=== PATIENT | male | born 1995 | race American Indian/Alaskan Native ===

== ENCOUNTER 2017-10-20 08:41 | Emergency (ER) | payer MEDICAID ==
[2017-10-20 09:33] VITALS: BP 112/82
[2017-10-20] MEDS ORDERED: MOTRIN PO ONE (11:31)
--- NOTE | 2017-10-20 11:31 | Emergency Department Report ---
ED ENT HPI - General Chief complaint: Dental/Oral Stated complaint: TOOTH ABSCESS Time Seen by Provider: 10/20/17 11:26 Source: patient Mode of arrival: Ambulatory Limitations: No Limitations - History of Present Illness Initial comments: This is a 22-year-old male who was previously unknown to this provider presented to the ER with a complaint of acute on chronic dentalgia. Dentalgia has been present for 2 years, it got worse over the past week. He endorses sensitivity to cold and to liquid and today he's. Pain is severe tooth #27, 28. No stridor or dysphonia. No headache, neck pain, chest pain, abdominal pain or shortness of breath. He hasn't followed up with a dentist yet. MD complaint: tooth pain -: Gradual, year(s) Location: tooth # (27) Severity: moderate Quality: aching Consistency: intermittent Improves with: NSAID, other medication, rest Worsens with: eating, movement Context- Dental: history of dental caries Associated Symptoms: toothache. denies: fever, cough, pain with swallowing, sore throat, tinnitus, hearing loss, discharge from ear, rhinorrhea - Related Data Previous Rx's Medication Instructions Recorded Last Taken Type HYDROcodone/APAP 5-325 [[place] 1 each PO Q6HR PRN #12 tablet 01/18/15 Unknown Rx 5/325] Ibuprofen [Motrin 600 MG tab] 600 mg PO Q8H PRN #20 tablet 01/18/15 Unknown Rx Sulfamethoxazole/Trimethoprim 1 each PO Q12H #20 tablet 01/18/15 Unknown Rx [Bactrim DS TAB] Azithromycin [Zithromax] 250 mg PO DAILY #1 pkg 01/06/16 Unknown Rx Fluticasone [Flonase] 2 spray NS QDAY #1 bottle 01/06/16 Unknown Rx Loratadine [Claritin] 10 mg PO DAILY #30 tablet 01/06/16 Unknown Rx Prednisone [predniSONE 10 mg 10 mg PO .TAPER #1 tab.ds.pk 01/06/16 Unknown Rx (6-Day Pack, 21 Tabs)] Promethazine /Codeine 5 ml PO Q6H PRN #150 ml 01/06/16 Unknown Rx [Phenergan/Codeine 6.25-10 mg/5 ml] Acetaminophen [Tylenol Arthritis] 650 mg PO Q6HR PRN #30 tablet.er 10/20/17 Unknown Rx Chlorhexidine Mouthwash [Peridex] 15 ml MM BID #1 bottle 10/20/17 Unknown Rx Ibuprofen [Motrin] 600 mg PO Q8H PRN #30 tablet 10/20/17 Unknown Rx Penicillin V Potassium 500 mg PO BID #13 tablet 10/20/17 Unknown Rx oxyCODONE [Roxicodone] 5 mg PO Q6HR PRN #15 tablet 10/20/17 Unknown Rx Allergies Allergy/AdvReac Type Severity Reaction Status Date / Time No Known Allergies Allergy Verified 01/06/16 10:00 ED Dental HPI - General Chief complaint: Dental/Oral Stated complaint: TOOTH ABSCESS Time Seen by Provider: 10/20/17 11:26 Source: patient Mode of arrival: Ambulatory Limitations: No Limitations - Related Data Previous Rx's Medication Instructions Recorded Last Taken Type HYDROcodone/APAP 5-325 [[place] 1 each PO Q6HR PRN #12 tablet 01/18/15 Unknown Rx 5/325] Ibuprofen [Motrin 600 MG tab] 600 mg PO Q8H PRN #20 tablet 01/18/15 Unknown Rx Sulfamethoxazole/Trimethoprim 1 each PO Q12H #20 tablet 01/18/15 Unknown Rx [Bactrim DS TAB] Azithromycin [Zithromax] 250 mg PO DAILY #1 pkg 01/06/16 Unknown Rx Fluticasone [Flonase] 2 spray NS QDAY #1 bottle 01/06/16 Unknown Rx Loratadine [Claritin] 10 mg PO DAILY #30 tablet 01/06/16 Unknown Rx Prednisone [predniSONE 10 mg 10 mg PO .TAPER #1 tab.ds.pk 01/06/16 Unknown Rx (6-Day Pack, 21 Tabs)] Promethazine /Codeine 5 ml PO Q6H PRN #150 ml 01/06/16 Unknown Rx [Phenergan/Codeine 6.25-10 mg/5 ml] Acetaminophen [Tylenol Arthritis] 650 mg PO Q6HR PRN #30 tablet.er 10/20/17 Unknown Rx Chlorhexidine Mouthwash [Peridex] 15 ml MM BID #1 bottle 10/20/17 Unknown Rx Ibuprofen [Motrin] 600 mg PO Q8H PRN #30 tablet 10/20/17 Unknown Rx Penicillin V Potassium 500 mg PO BID #13 tablet 01/20/18 Unknown Rx oxyCODONE [Roxicodone] 5 mg PO Q6HR PRN #15 tablet 10/20/17 Unknown Rx Allergies Allergy/AdvReac Type Severity Reaction Status Date / Time No Known Allergies Allergy Verified 01/06/16 10:00 ED Review of Systems ROS: Stated complaint: TOOTH ABSCESS Other details as noted in HPI ED Past Medical Hx - Past Medical History Previous Medical History?: Yes Hx Asthma: Yes Additional medical history: reactive airway disease - Surgical History Past Surgical History?: Yes Additional Surgical History: wisdom tooth removed - Social History Smoking Status: Current Every Day Smoker Substance Use Type: Non Opiate Pain - Medications Home Medications: Home Medications Medication Instructions Recorded Confirmed Last Taken Type HYDROcodone/APAP 5-325 [[place] 1 each PO Q6HR PRN #12 tablet 01/18/15 Unknown Rx 5/325] Ibuprofen [Motrin 600 MG tab] 600 mg PO Q8H PRN #20 tablet 01/18/15 Unknown Rx Sulfamethoxazole/Trimethoprim 1 each PO Q12H #20 tablet 01/18/15 Unknown Rx [Bactrim DS TAB] Azithromycin [Zithromax] 250 mg PO DAILY #1 pkg 01/06/16 Unknown Rx Fluticasone [Flonase] 2 spray NS QDAY #1 bottle 01/06/16 Unknown Rx Loratadine [Claritin] 10 mg PO DAILY #30 tablet 01/06/16 Unknown Rx Prednisone [predniSONE 10 mg 10 mg PO .TAPER #1 tab.ds.pk 01/06/16 Unknown Rx (6-Day Pack, 21 Tabs)] Promethazine /Codeine 5 ml PO Q6H PRN #150 ml 01/06/16 Unknown Rx [Phenergan/Codeine 6.25-10 mg/5 ml] Acetaminophen [Tylenol Arthritis] 650 mg PO Q6HR PRN #30 tablet.er 10/20/17 Unknown Rx Chlorhexidine Mouthwash [Peridex] 15 ml MM BID #1 bottle 10/20/17 Unknown Rx Ibuprofen [Motrin] 600 mg PO Q8H PRN #30 tablet 10/20/17 Unknown Rx Penicillin V Potassium 500 mg PO BID #13 tablet 10/20/17 Unknown Rx oxyCODONE [Roxicodone] 5 mg PO Q6HR PRN #15 tablet 10/20/17 Unknown Rx ED Physical Exam - General Limitations: No Limitations General appearance: alert, in no apparent distress - Head Head exam: Present: atraumatic, normocephalic - Eye Eye exam: Present: normal appearance, PERRL, EOMI. Absent: nystagmus - ENT ENT exam: Present: normal exam (there is no stridor or dysphonia or trismus. There is no malocclusion.), normal orophraynx, mucous membranes moist, TM's normal bilaterally, normal external ear exam, other (no obvious abscess is noted. There is no buccal tenderness. There is no sublingual tenderness. Teeth #29 30, 31, 32 tender to percussion.) - Neck Neck exam: Present: normal inspection, full ROM - Respiratory Respiratory exam: Present: normal lung sounds bilaterally. Absent: respiratory distress - Cardiovascular Cardiovascular Exam: Present: regular rate, normal rhythm, normal heart sounds. Absent: systolic murmur, diastolic murmur, rubs, gallop - GI/Abdominal GI/Abdominal exam: Present: soft, normal bowel sounds. Absent: distended, tenderness, guarding, rebound, rigid - Rectal Rectal exam: Present: deferred - Extremities Exam Extremities exam: Present: normal inspection, full ROM. Absent: tenderness - Back Exam Back exam: Present: normal inspection, full ROM. Absent: tenderness, CVA tenderness (R), paraspinal tenderness, vertebral tenderness - Neurological Exam Neurological exam: Present: alert, oriented X3, CN II-XII intact, normal gait, other (Extraocular movements intact. Tongue midline. No facial droop. Facial sensation intact to light touch in the V1, V2, V3 distribution bilaterally. 5 and 5 strength in 4 extremities.. Sensation is intact to light touch in 4 extremities.). Absent: motor sensory deficit - Psychiatric Psychiatric exam: Present: normal affect, normal mood - Skin Skin exam: Present: warm, dry, intact, normal color. Absent: rash ED Course Vital Signs 10/20/17 10/20/17 09:29 11:46 Temperature 98.5 F Pulse Rate 79 Respiratory 18 20 Rate Blood Pressure 112/82 O2 Sat by Pulse 99 Oximetry ED Medical Decision Making - Lab Data Vital Signs 10/20/17 10/20/17 09:29 11:46 Temperature 98.5 F Pulse Rate 79 Respiratory 18 20 Rate Blood Pressure 112/82 O2 Sat by Pulse 99 Oximetry - Medical Decision Making Differential diagnosis, including not limited to: Dentalgia, dental caries Assessment and plan: 22-year-old male with dental caries and dentalgia. No evidence clinically of large abscess. He is protecting his airway at this time. He will be started on pain medication, chlorhexidine, penicillin, and he will be referred to local dentist. Addition, patient was given numerous printouts on local low-cost dentists available in state. Critical care attestation.: If time is entered above; I have spent that time in minutes in the direct care of this critically ill patient, excluding procedure time. ED Disposition Clinical Impression: Dentalgia Disposition: DC- TO HOME OR SELFCARE Is pt being admited?: No Does the pt Need Aspirin: No Condition: Good Instructions: Dental Caries (ED), Toothache (ED) Additional Instructions: Take the pain medication, antibiotics as directed. Follow up with a dentist as soon as possible. Follow-up with primary care doctor on an as-needed basis. Return to the ER right away with new pain, worsened pain, migration of pain, fevers, chills, confusion, projectile vomiting, change in mental status, inability to speak, inability to breathe. Prescriptions: Acetaminophen [Tylenol Arthritis] 650 mg PO Q6HR PRN #30 tablet.er PRN Reason: Pain Chlorhexidine Mouthwash [Peridex] 15 ml MM BID #1 bottle Ibuprofen [Motrin] 600 mg PO Q8H PRN #30 tablet PRN Reason: Pain oxyCODONE [Roxicodone] 5 mg PO Q6HR PRN #15 tablet PRN Reason: Pain Penicillin V Potassium 500 mg PO BID #13 tablet Referrals: PRIMARY MD STEVENSON [Primary Care Provider] - 3-5 Days GRISELDA ERWIN MD [Staff Physician] - 3-5 Days [facility] [Outside] - 3-5 Days
[2017-10-20] MEDS ORDERED: VEETIDS PO ONE (12:00)
== END 2017-10-20 12:25 | disposition home or self-care (01) ==
LOC: ED 08:41
DX: K08.89 Other specified disorders of teeth and supporting structures (principal); J45.909 Unspecified asthma, uncomplicated; F17.200 Nicotine dependence, unspecified, uncomplicated
CPT/HCPCS: 99282; 99283

== ENCOUNTER 2018-01-04 11:12 | Emergency (ER) | payer MEDICAID ==
[2018-01-04 11:54] VITALS: BP 120/70
--- NOTE | 2018-01-04 14:01 | Emergency Department Report ---
ED ENT HPI - General Chief complaint: Dental/Oral Stated complaint: TOOTH ABCESS Time Seen by Provider: 01/04/18 13:57 Source: patient Mode of arrival: Ambulatory Limitations: No Limitations - History of Present Illness Initial comments: Patient reports right lower toothache with swelling that started this week MD complaint: tooth pain Onset/Timin -: days(s) Location: tooth # (#32) Severity: severe Severity scale (0 -10): 9 Quality: aching Consistency: constant Improves with: none Worsens with: eating, movement Context-Epistaxis: other (none) Context- Dental: history of dental caries, poor dental care Context- Ear: other (none) Associated Symptoms: toothache. denies: fever, cough, gum swelling, pain with swallowing, sore throat, tinnitus, discharge from ear, rhinorrhea - Related Data Previous Rx's Medication Instructions Recorded Last Taken Type HYDROcodone/APAP 5-325 [[place] 1 each PO Q6HR PRN #12 tablet 01/18/15 Unknown Rx 5/325] Ibuprofen [Motrin 600 MG tab] 600 mg PO Q8H PRN #20 tablet 01/18/15 Unknown Rx Sulfamethoxazole/Trimethoprim 1 each PO Q12H #20 tablet 01/18/15 Unknown Rx [Bactrim DS TAB] Azithromycin [Zithromax] 250 mg PO DAILY #1 pkg 01/06/16 Unknown Rx Fluticasone [Flonase] 2 spray NS QDAY #1 bottle 01/06/16 Unknown Rx Loratadine [Claritin] 10 mg PO DAILY #30 tablet 01/06/16 Unknown Rx Prednisone [predniSONE 10 mg 10 mg PO .TAPER #1 tab.ds.pk 01/06/16 Unknown Rx (6-Day Pack, 21 Tabs)] Promethazine /Codeine 5 ml PO Q6H PRN #150 ml 01/06/16 Unknown Rx [Phenergan/Codeine 6.25-10 mg/5 ml] Acetaminophen [Tylenol Arthritis] 650 mg PO Q6HR PRN #30 tablet.er 10/20/17 Unknown Rx Chlorhexidine Mouthwash [Peridex] 15 ml MM BID #1 bottle 10/20/17 Unknown Rx Ibuprofen [Motrin] 600 mg PO Q8H PRN #30 tablet 10/20/17 Unknown Rx Penicillin V Potassium 500 mg PO BID #13 tablet 10/20/17 Unknown Rx oxyCODONE [Roxicodone] 5 mg PO Q6HR PRN #15 tablet 10/20/17 Unknown Rx HYDROcodone/APAP 5-325 [[place] 1 each PO Q6HR PRN #10 tablet 01/04/18 Unknown Rx 5/325] Ibuprofen 600 mg PO TID PRN #30 tablet 01/04/18 Unknown Rx Penicillin Vk [Veetids TAB] 250 mg PO QID #40 tablet 01/04/18 Unknown Rx Allergies Allergy/AdvReac Type Severity Reaction Status Date / Time No Known Allergies Allergy Verified 01/06/16 10:00 ED Dental HPI - General Chief complaint: Dental/Oral Stated complaint: TOOTH ABCESS Source: patient Mode of arrival: Ambulatory Limitations: No Limitations - Related Data Previous Rx's Medication Instructions Recorded Last Taken Type HYDROcodone/APAP 5-325 [[place] 1 each PO Q6HR PRN #12 tablet 01/18/15 Unknown Rx 5/325] Ibuprofen [Motrin 600 MG tab] 600 mg PO Q8H PRN #20 tablet 01/18/15 Unknown Rx Sulfamethoxazole/Trimethoprim 1 each PO Q12H #20 tablet 01/18/15 Unknown Rx [Bactrim DS TAB] Azithromycin [Zithromax] 250 mg PO DAILY #1 pkg 01/06/16 Unknown Rx Fluticasone [Flonase] 2 spray NS QDAY #1 bottle 01/06/16 Unknown Rx Loratadine [Claritin] 10 mg PO DAILY #30 tablet 01/06/16 Unknown Rx Prednisone [predniSONE 10 mg 10 mg PO .TAPER #1 tab.ds.pk 01/06/16 Unknown Rx (6-Day Pack, 21 Tabs)] Promethazine /Codeine 5 ml PO Q6H PRN #150 ml 01/06/16 Unknown Rx [Phenergan/Codeine 6.25-10 mg/5 ml] Acetaminophen [Tylenol Arthritis] 650 mg PO Q6HR PRN #30 tablet.er 10/20/17 Unknown Rx Chlorhexidine Mouthwash [Peridex] 15 ml MM BID #1 bottle 10/20/17 Unknown Rx Ibuprofen [Motrin] 600 mg PO Q8H PRN #30 tablet 10/20/17 Unknown Rx Penicillin V Potassium 500 mg PO BID #13 tablet 10/20/17 Unknown Rx oxyCODONE [Roxicodone] 5 mg PO Q6HR PRN #15 tablet 10/20/17 Unknown Rx HYDROcodone/APAP 5-325 [[place] 1 each PO Q6HR PRN #10 tablet 01/04/18 Unknown Rx 5/325] Ibuprofen 600 mg PO TID PRN #30 tablet 01/04/18 Unknown Rx Penicillin Vk [Veetids TAB] 250 mg PO QID #40 tablet 01/04/18 Unknown Rx Allergies Allergy/AdvReac Type Severity Reaction Status Date / Time No Known Allergies Allergy Verified 01/06/16 10:00 ED Review of Systems ROS: Stated complaint: TOOTH ABCESS Other details as noted in HPI Constitutional: denies: chills, fever Eyes: denies: eye pain, eye discharge, vision change ENT: dental pain. denies: ear pain, throat pain, hearing loss, epistaxis, congestion Respiratory: denies: cough, orthopnea, shortness of breath, SOB with exertion, SOB at rest, stridor, wheezing Cardiovascular: denies: chest pain, palpitations, dyspnea on exertion, orthopnea , edema, syncope Gastrointestinal: denies: abdominal pain, nausea, diarrhea Musculoskeletal: denies: back pain, joint swelling, arthralgia Skin: denies: rash, lesions Neurological: denies: headache, weakness, paresthesias Psychiatric: denies: anxiety, depression Hematological/Lymphatic: denies: easy bleeding, easy bruising ED Past Medical Hx - Past Medical History Hx Asthma: Yes Additional medical history: reactive airway disease - Surgical History Additional Surgical History: wisdom tooth removed - Social History Smoking Status: Never Smoker Substance Use Type: None - Medications Home Medications: Home Medications Medication Instructions Recorded Confirmed Last Taken Type HYDROcodone/APAP 5-325 [[place] 1 each PO Q6HR PRN #12 tablet 01/18/15 Unknown Rx 5/325] Ibuprofen [Motrin 600 MG tab] 600 mg PO Q8H PRN #20 tablet 01/18/15 Unknown Rx Sulfamethoxazole/Trimethoprim 1 each PO Q12H #20 tablet 01/18/15 Unknown Rx [Bactrim DS TAB] Azithromycin [Zithromax] 250 mg PO DAILY #1 pkg 01/06/16 Unknown Rx Fluticasone [Flonase] 2 spray NS QDAY #1 bottle 01/06/16 Unknown Rx Loratadine [Claritin] 10 mg PO DAILY #30 tablet 01/06/16 Unknown Rx Prednisone [predniSONE 10 mg 10 mg PO .TAPER #1 tab.ds.pk 01/06/16 Unknown Rx (6-Day Pack, 21 Tabs)] Promethazine /Codeine 5 ml PO Q6H PRN #150 ml 01/06/16 Unknown Rx [Phenergan/Codeine 6.25-10 mg/5 ml] Acetaminophen [Tylenol Arthritis] 650 mg PO Q6HR PRN #30 tablet.er 10/20/17 Unknown Rx Chlorhexidine Mouthwash [Peridex] 15 ml MM BID #1 bottle 10/20/17 Unknown Rx Ibuprofen [Motrin] 600 mg PO Q8H PRN #30 tablet 10/20/17 Unknown Rx Penicillin V Potassium 500 mg PO BID #13 tablet 10/20/17 Unknown Rx oxyCODONE [Roxicodone] 5 mg PO Q6HR PRN #15 tablet 10/20/17 Unknown Rx HYDROcodone/APAP 5-325 [[place] 1 each PO Q6HR PRN #10 tablet 01/04/18 Unknown Rx 5/325] Ibuprofen 600 mg PO TID PRN #30 tablet 01/04/18 Unknown Rx Penicillin Vk [Veetids TAB] 250 mg PO QID #40 tablet 01/04/18 Unknown Rx ED Physical Exam - General Limitations: No Limitations General appearance: alert, in no apparent distress - Head Head exam: Present: atraumatic, normocephalic - Eye Eye exam: Present: normal appearance, PERRL, EOMI Pupils: Present: normal accommodation - ENT ENT exam: Present: mucous membranes moist, TM's normal bilaterally, normal external ear exam - Expanded ENT Exam Expanded Ear exam: Present: normal external inspection. Absent: auricular hematoma, auricular trauma Mouth exam: Present: normal external inspection, tongue normal. Absent: drooling, trismus, muffled voice, tongue elevation, laceration Teeth exam: Present: dental tenderness # (32). Absent: dental caries, fractured tooth #, gingival enlargement Throat exam: Positive: normal inspection. Negative: tonsillar erythema, tonsillomegaly, tonsillar exudate, R peritonsillar mass, L peritonsillar mass - Neck Neck exam: Present: normal inspection, full ROM. Absent: tenderness, meningismus, lymphadenopathy, thyromegaly - Respiratory Respiratory exam: Present: normal lung sounds bilaterally. Absent: respiratory distress, wheezes, rales, rhonchi, stridor, chest wall tenderness, accessory muscle use, decreased breath sounds, prolonged expiratory - Cardiovascular Cardiovascular Exam: Present: regular rate, normal rhythm, normal heart sounds. Absent: bradycardia, tachycardia, irregular rhythm, systolic murmur, diastolic murmur, rubs, gallop - Neurological Exam Neurological exam: Present: alert, oriented X3, CN II-XII intact, normal gait, reflexes normal. Absent: motor sensory deficit - Psychiatric Psychiatric exam: Present: normal affect, normal mood - Skin Skin exam: Present: warm, dry, intact, normal color. Absent: rash ED Course Vital Signs 01/04/18 11:49 Temperature 98.8 F Pulse Rate 72 Respiratory 16 Rate Blood Pressure 120/70 O2 Sat by Pulse 100 Oximetry ED Medical Decision Making - Lab Data Vital Signs 01/04/18 11:49 Temperature 98.8 F Pulse Rate 72 Respiratory 16 Rate Blood Pressure 120/70 O2 Sat by Pulse 100 Oximetry - Medical Decision Making During the course of ED, all other systems are unremarkable except for documentation in HPI. Patient sent home with prescriptions for PCN VK, [place] and Ibuprofen, instructed to follow up with dentistry shay, he verbalized understanding - Differential Diagnosis Dental Pain, Dental Abscess Critical care attestation.: If time is entered above; I have spent that time in minutes in the direct care of this critically ill patient, excluding procedure time. ED Disposition Clinical Impression: Pain, dental Disposition: DC-01 TO HOME OR SELFCARE Is pt being admited?: No Does the pt Need Aspirin: No Condition: Stable Instructions: Toothache (ED), Dental Abscess (ED) Additional Instructions: Take medication as directed. No drinking or driving while taking pain medication. Follow up with dentistry SHAY Prescriptions: HYDROcodone/APAP 5-325 [[place] 5/325] 1 each PO Q6HR PRN #10 tablet PRN Reason: Pain Ibuprofen 600 mg PO TID PRN #30 tablet PRN Reason: MODERATE PAIN Penicillin Vk [Veetids TAB] 250 mg PO QID #40 tablet Referrals: PRIMARY CARE, [Primary Care Provider] - 3-5 Days [facility] [Outside] - 3-5 Days [facility] [Outside] - 3-5 Days Forms: Work/School Release Form(ED) Time of Disposition: 14:04
== END 2018-01-04 14:15 | disposition home or self-care (01) ==
LOC: ED 11:12
DX: K08.89 Other specified disorders of teeth and supporting structures (principal); J45.909 Unspecified asthma, uncomplicated
CPT/HCPCS: 99282

== ENCOUNTER 2018-03-14 01:21 | Emergency (ER) | payer SELFPAY ==
[2018-03-14 02:14] VITALS: BP 125/70
[2018-03-14] MEDS ORDERED: MOTRIN PO ONE ×2 (02:57→03:01)
--- NOTE | 2018-03-14 05:46 | Emergency Department Report ---
ED ENT HPI - General Chief complaint: Dental/Oral Stated complaint: TOOTH PAIN Time Seen by Provider: 03/14/18 05:46 Source: patient Mode of arrival: Ambulatory Limitations: No Limitations - History of Present Illness Initial comments: 23-year-old -[place] male comes in for complaining of right lower toothache on and off for several months. Patient has been treated with antibiotics several times. Patient was last seen here on 01/04/2018 and was given medication for antibiotics and [place]. Review of patient's narcotic record from [facility] aware this shows that patient just recently got [place] field and 02/25/2018 but was written on 01/04/2018. Patient has been to this emergency for the third time for antibiotics and pain medicine for this same tooth. MD complaint: tooth pain -: month(s) (several) Severity scale (0 -10): 10 Context- Dental: poor dental care - Related Data Previous Rx's Medication Instructions Recorded Last Taken Type HYDROcodone/APAP 5-325 [[place] 1 each PO Q6HR PRN #12 tablet 01/18/15 Unknown Rx 5/325] Ibuprofen [Motrin 600 MG tab] 600 mg PO Q8H PRN #20 tablet 01/18/15 Unknown Rx Sulfamethoxazole/Trimethoprim 1 each PO Q12H #20 tablet 01/18/15 Unknown Rx [Bactrim DS TAB] Azithromycin [Zithromax] 250 mg PO DAILY #1 pkg 01/06/16 Unknown Rx Fluticasone [Flonase] 2 spray NS QDAY #1 bottle 01/06/16 Unknown Rx Loratadine [Claritin] 10 mg PO DAILY #30 tablet 01/06/16 Unknown Rx Prednisone [predniSONE 10 mg 10 mg PO .TAPER #1 tab.ds.pk 01/06/16 Unknown Rx (6-Day Pack, 21 Tabs)] Promethazine /Codeine 5 ml PO Q6H PRN #150 ml 01/06/16 Unknown Rx [Phenergan/Codeine 6.25-10 mg/5 ml] Acetaminophen [Tylenol Arthritis] 650 mg PO Q6HR PRN #30 tablet.er 10/20/17 Unknown Rx Chlorhexidine Mouthwash [Peridex] 15 ml MM BID #1 bottle 10/20/17 Unknown Rx Ibuprofen [Motrin] 600 mg PO Q8H PRN #30 tablet 10/20/17 Unknown Rx Penicillin V Potassium 500 mg PO BID #13 tablet 10/20/17 Unknown Rx oxyCODONE [Roxicodone] 5 mg PO Q6HR PRN #15 tablet 10/20/17 Unknown Rx HYDROcodone/APAP 5-325 [[place] 1 each PO Q6HR PRN #10 tablet 01/04/18 Unknown Rx 5/325] Penicillin Vk [Veetids TAB] 250 mg PO QID #40 tablet 01/04/18 Unknown Rx Ibuprofen 600 mg PO TID PRN #30 tablet 03/14/18 Unknown Rx Allergies Allergy/AdvReac Type Severity Reaction Status Date / Time No Known Allergies Allergy Verified 01/06/16 10:00 ED Dental HPI - General Chief complaint: Dental/Oral Stated complaint: TOOTH PAIN Time Seen by Provider: 03/14/18 05:46 Source: patient Mode of arrival: Ambulatory Limitations: No Limitations - Related Data Previous Rx's Medication Instructions Recorded Last Taken Type HYDROcodone/APAP 5-325 [[place] 1 each PO Q6HR PRN #12 tablet 01/18/15 Unknown Rx 5/325] Ibuprofen [Motrin 600 MG tab] 600 mg PO Q8H PRN #20 tablet 01/18/15 Unknown Rx Sulfamethoxazole/Trimethoprim 1 each PO Q12H #20 tablet 01/18/15 Unknown Rx [Bactrim DS TAB] Azithromycin [Zithromax] 250 mg PO DAILY #1 pkg 01/06/16 Unknown Rx Fluticasone [Flonase] 2 spray NS QDAY #1 bottle 01/06/16 Unknown Rx Loratadine [Claritin] 10 mg PO DAILY #30 tablet 01/06/16 Unknown Rx Prednisone [predniSONE 10 mg 10 mg PO .TAPER #1 tab.ds.pk 01/06/16 Unknown Rx (6-Day Pack, 21 Tabs)] Promethazine /Codeine 5 ml PO Q6H PRN #150 ml 01/06/16 Unknown Rx [Phenergan/Codeine 6.25-10 mg/5 ml] Acetaminophen [Tylenol Arthritis] 650 mg PO Q6HR PRN #30 tablet.er 10/20/17 Unknown Rx Chlorhexidine Mouthwash [Peridex] 15 ml MM BID #1 bottle 10/20/17 Unknown Rx Ibuprofen [Motrin] 600 mg PO Q8H PRN #30 tablet 10/20/17 Unknown Rx Penicillin V Potassium 500 mg PO BID #13 tablet 10/20/17 Unknown Rx oxyCODONE [Roxicodone] 5 mg PO Q6HR PRN #15 tablet 10/20/17 Unknown Rx HYDROcodone/APAP 5-325 [[place] 1 each PO Q6HR PRN #10 tablet 01/04/18 Unknown Rx 5/325] Penicillin Vk [Veetids TAB] 250 mg PO QID #40 tablet 01/04/18 Unknown Rx Ibuprofen 600 mg PO TID PRN #30 tablet 03/14/18 Unknown Rx Allergies Allergy/AdvReac Type Severity Reaction Status Date / Time No Known Allergies Allergy Verified 01/06/16 10:00 ED Review of Systems ROS: Stated complaint: TOOTH PAIN Other details as noted in HPI Constitutional: denies: chills, fever ENT: dental pain ED Past Medical Hx - Past Medical History Hx Asthma: Yes Additional medical history: reactive airway disease - Surgical History Additional Surgical History: wisdom tooth removed - Social History Smoking Status: Current Every Day Smoker Substance Use Type: None - Medications Home Medications: Home Medications Medication Instructions Recorded Confirmed Last Taken Type HYDROcodone/APAP 5-325 [[place] 1 each PO Q6HR PRN #12 tablet 01/18/15 Unknown Rx 5/325] Ibuprofen [Motrin 600 MG tab] 600 mg PO Q8H PRN #20 tablet 01/18/15 Unknown Rx Sulfamethoxazole/Trimethoprim 1 each PO Q12H #20 tablet 01/18/15 Unknown Rx [Bactrim DS TAB] Azithromycin [Zithromax] 250 mg PO DAILY #1 pkg 01/06/16 Unknown Rx Fluticasone [Flonase] 2 spray NS QDAY #1 bottle 01/06/16 Unknown Rx Loratadine [Claritin] 10 mg PO DAILY #30 tablet 01/06/16 Unknown Rx Prednisone [predniSONE 10 mg 10 mg PO .TAPER #1 tab.ds.pk 01/06/16 Unknown Rx (6-Day Pack, 21 Tabs)] Promethazine /Codeine 5 ml PO Q6H PRN #150 ml 01/06/16 Unknown Rx [Phenergan/Codeine 6.25-10 mg/5 ml] Acetaminophen [Tylenol Arthritis] 650 mg PO Q6HR PRN #30 tablet.er 10/20/17 Unknown Rx Chlorhexidine Mouthwash [Peridex] 15 ml MM BID #1 bottle 10/20/17 Unknown Rx Ibuprofen [Motrin] 600 mg PO Q8H PRN #30 tablet 10/20/17 Unknown Rx Penicillin V Potassium 500 mg PO BID #13 tablet 10/20/17 Unknown Rx oxyCODONE [Roxicodone] 5 mg PO Q6HR PRN #15 tablet 10/20/17 Unknown Rx HYDROcodone/APAP 5-325 [[place] 1 each PO Q6HR PRN #10 tablet 01/04/18 Unknown Rx 5/325] Penicillin Vk [Veetids TAB] 250 mg PO QID #40 tablet 01/04/18 Unknown Rx Ibuprofen 600 mg PO TID PRN #30 tablet 03/14/18 Unknown Rx ED Physical Exam - General Limitations: No Limitations - Head Head exam: Present: atraumatic, normocephalic - Eye Eye exam: Present: normal appearance - Expanded ENT Exam Expanded Teeth exam: Present: dental tenderness # (32). Absent: gingival enlargement - Neck Neck exam: Present: other (there is no swelling to the right lower jaw is nontender to palpate). Absent: lymphadenopathy ED Course Vital Signs 03/14/18 02:07 Temperature 98.6 F Pulse Rate 67 Respiratory 16 Rate Blood Pressure 125/70 O2 Sat by Pulse 100 Oximetry ED Medical Decision Making - Medical Decision Making Patient has been evaluated with this provider fast track. Patient has been here at least 3 times for the same issue started back in October 2017. I discussed the patient that there is no gingiva enlargement is no purulent discharge. There is no tenderness to palpate to his right lower jaw. I discussed the patient I would not be able to refill his antibiotics and pain medication. Discussed the patient he needs to go to one of the clinics to have his tooth removed. Patient has been given this list several times. Critical care attestation.: If time is entered above; I have spent that time in minutes in the direct care of this critically ill patient, excluding procedure time. ED Disposition Clinical Impression: Chronic dental pain, Non-compliance with treatment Disposition: - TO HOME OR SELFCARE Is pt being admited?: No Does the pt Need Aspirin: No Condition: Stable Additional Instructions: Please take pain medication as prescribed. You last follow-up with a dentist. The emergency room is not wearing it continued to get antibiotics for a chronic dental issue. Prescriptions: Ibuprofen 600 mg PO TID PRN #30 tablet PRN Reason: MODERATE PAIN Referrals: PRIMARY CARE, [Primary Care Provider] - 3-5 Days [facility] [Provider Group] - 3-5 Days [facility] [Outside] - 3-5 Days [facility] [Outside] - 3-5 Days
== END 2018-03-14 06:12 | disposition home or self-care (01) ==
LOC: ED 01:21
DX: K08.89 Other specified disorders of teeth and supporting structures (principal); F17.200 Nicotine dependence, unspecified, uncomplicated
CPT/HCPCS: 99282